=== PATIENT | female | born 1960 | race Caucasian/White ===

== ENCOUNTER 2016-09-17 15:41 | Emergency (ER) | payer MEDICAID ==
[~2016-09-17] VITALS: Ht 170.2 cm; Wt 76.3 kg
[~2016-09-17 15:41] MED LIST: AMLO5TAB2 PO; ASPI325T4 PO; LEVO88TA4 PO; METO25TA35 PO; OMEP40CA6 PO; SIMV80TA3 PO; VENL75TA PO; ZOLP10TA PO
[2016-09-17] MEDS ORDERED: SODIUM CHLORIDE 0.9% 1,000ML IV ONE (16:00)
[2016-09-17] MEDS ORDERED: SODIUM CHLORIDE FLUSH 10ML SYR IVF ONE (16:00)
[2016-09-17 16:48] LABS: HEMOGLOBIN 14.7 g/dL (11.7-16.4)
[2016-09-17 17:04] LABS: PATH.CAST-FLAG NOT PRESENT; SPERM-FLAG NOT PRESENT; SRC-FLAG NOT PRESENT; XTAL-FLAG NOT PRESENT; YLC-FLAG NOT PRESENT
[2016-09-17 17:08] LABS: ASPARTATE AMINO TRANSFERASE 22 U/L (15-37); BLOOD UREA NITROGEN 11 mg/dL (7-18)
[2016-09-17 20:33] VITALS: BP 143/83
== END 2016-09-17 20:36 | disposition home or self-care (01) ==
LOC: ED 17:22
DX: R10.9 Unspecified abdominal pain (principal); M54.5 Low back pain; I10 Essential (primary) hypertension; E78.5 Hyperlipidemia, unspecified
CPT/HCPCS: 36415; 74176; 80053; 81001; 83690; 85025

== ENCOUNTER 2020-01-09 10:48 | Emergency (ER) | payer MEDICAID ==
[~2020-01-09] VITALS: Ht 170.2 cm; Wt 74.0 kg
[~2020-01-09 10:48] MED LIST changes: +AMLO-150 PO; -AMLO5TAB2 PO; +ASPI325T17 PO; -ASPI325T4 PO; +OMEP40CA42 PO; -OMEP40CA6 PO; +SIMV80TA18 PO; -SIMV80TA3 PO
--- NOTE | 2020-01-09 11:07 | NUR ---
preschool assistant principal note : ekg completed in triage, handed to MD Eason. Pt's symptoms and triage VS reviewed with .
[2020-01-09] MEDS ORDERED: SODIUM CHLORIDE 0.9% 1,000 ML IV ONE (11:14)
--- NOTE | 2020-01-09 11:18 | NUR ---
PATIENT COMES IN TODAY WITH C/O OF LOWER BACK PAIN AND DIZZINESS X1 MONTH. PATIENT HAS SOME PAIN IN HER UPPER ABDOMEN. PATIENT WAS RECENTLY SEEN BY HER PCP WHERE IT WAS NOTED HER CREATININE LEVEL WAS HIGH, PATIENT IS SCHEDULED FOR AN ABDOMINAL CT ON SATURDAY 01/13. PATIENT STATES HER PAIN LEVEL NOW IS A 10/13, A&OX4, DENIES NUMBNESS OR TINGLING, NO URINARY SYMPTOMS. NO FURTHER NEEDS AT THIS TIME.
[2020-01-09] MEDS ORDERED: SODIUM CHLORIDE 0.9% 1,000ML IV ONE (11:30)
[2020-01-09] MEDS ORDERED: SODIUM CHLORIDE FLUSH 10ML SYR IVF ONE (11:30)
[2020-01-09 11:52] LABS: BASOPHILS # (AUTO) 0.04 x10^3/uL (0-0.1); BASOPHILS % (AUTO) 1 % (0-1); EOSINOPHILS % (AUTO) 2 % (1-7); LYMPHOCYTES # (AUTO) 1.47 x10^3/uL (1-3.4); LYMPHOCYTES % (AUTO) 24 % (22-44); MD NO; MEAN CORPUSCULAR HEMOGLOBIN 31.6 pg (27.0-34.8); MEAN CORPUSCULAR HGB CONC 33.5 g/dL (32.4-35.8); MEAN CORPUSCULAR VOLUME 94.4 fL (80-100); MEAN PLATELET VOLUME 9.2 fL (7.4-10.4); MONOCYTES # (AUTO) 0.54 x10^3/uL (0.2-0.8); MONOCYTES % (AUTO) 9 % (2-9); NEUTROPHILS # (AUTO) 4.11 x10^3/uL (1.8-6.8); NEUTROPHILS % (AUTO) 66 % (42-75); PLATELET COUNT 233 x10^3/uL (130-400); RED BLOOD COUNT 4.75 x10^6/uL (3.82-5.3); RED CELL DISTRIBUTION WIDTH 13.2 % (9.6-15.2)
--- NOTE | 2020-01-09 12:01 | NUR ---
PATIENT AMBULATED TO BATHROOM FOR URINE SAMPLE.
[2020-01-09 12:12] LABS: ALBUMIN 4.3 g/dL (3.4-5.0); CALCIUM 9.7 mg/dL (8.5-10.1); CHLORIDE 113 mmol/L (98-107)
[2020-01-09 12:15] LABS: ALANINE AMINOTRANSFERASE 23 U/L (12-78); ALKALINE PHOSPHATASE 67 U/L (45-117); ANION GAP 6 mmol/L (5-15); BILIRUBIN,TOTAL 0.3 mg/dL (0.2-1.0); CREATININE 0.96 mg/dL (0.55-1.02); TOTAL PROTEIN 7.8 g/dL (6.4-8.2)
--- NOTE | 2020-01-09 12:20 | NUR ---
BREAK RN: PT BACK TO ROOM FROM RESTROOM. MONITORS REAPPLIED. PT REPOSITIONED ON GURCASHION FOR COMFORT. BILAT FEMORAL PULSES FELT AND DOPPLER US UTILIZED. ERP DR. JERONIMO NOTIFIED FEMORAL PULSES PRESENT. UA COLLECTED, LABELED, AND SENT TO LAB. NADN. HARVEY.
[2020-01-09 12:29] LABS: MICROSCOPIC INDICATED
--- NOTE | 2020-01-09 13:26 | NUR ---
PT TO CT AT THIS TIME.
[2020-01-09] MEDS ORDERED: OMNIPAQUE 350 MG/ML, 100ML BOTTLE ONE (13:30)
--- NOTE | 2020-01-09 14:15 | NUR ---
PATIENT BACK FROM CT. VITAL SIGNS WITHIN NORMAL LIMITS. NO C/O PAIN, NO FURTHER NEEDS AT THIS TIME.
[2020-01-09 15:24] VITALS: BP 157/79
--- NOTE | 2020-01-09 15:38 | NUR ---
Patient given discharge instructions and they have confirmed that they understand the instructions. Patient ambulatory with steady gait.
== END 2020-01-09 15:39 | disposition home or self-care (01) ==
LOC: ED 15:30
DX: R42 Dizziness and giddiness (principal); M54.5 Low back pain; R53.1 Weakness; I10 Essential (primary) hypertension
CPT/HCPCS: 36415; 74175; 80053; 81001; 83690; 85025; 87086; 93005; 96360; 96361; 99285; J7030; Q9967

== ENCOUNTER → 2020-02-01 | Outpatient (CLI) | payer MEDICAID ==
[~2020-02-01] MED LIST changes: +OMNIPAQUE 350 MG/ML, 100ML BOTTLE ONE
== END | disposition home or self-care (01) ==
LOC: RAD 13:19
PROVIDERS: ATTEND Nurse Practitioner
DX: I71.4 Abdominal aortic aneurysm, without rupture (principal); I74.09 Other arterial embolism and thrombosis of abdominal aorta; Z86.79 Personal history of other diseases of the circulatory system
CPT/HCPCS: 74177; Q9967

== ENCOUNTER 2020-04-21 07:34 | Day surgery (SDC) | payer MEDICAID, OTHER ==
[2020-04-18 10:08] LABS: BASOPHILS % (AUTO) 1 % (0-1); EOSINOPHILS % (AUTO) 3 % (1-7); LYMPHOCYTES % (AUTO) 19 % (22-44); MEAN CORPUSCULAR HEMOGLOBIN 30.6 pg (27.0-34.8); MEAN CORPUSCULAR HGB CONC 32.9 g/dL (32.4-35.8); MEAN PLATELET VOLUME 8.6 fL (7.4-10.4); MONOCYTES % (AUTO) 9 % (2-9); NEUTROPHILS % (AUTO) 69 % (42-75); PLATELET COUNT 270 x10^3/uL (130-400); RED BLOOD COUNT 4.65 x10^6/uL (3.82-5.3)
[2020-04-18 10:10] LABS: MD NO
[2020-04-18 10:19] LABS: INTERNATIONAL NORMALIZED RATIO 0.94 (0.93-1.1)
[2020-04-18 10:25] LABS: ALBUMIN 4.1 g/dL (3.4-5.0); ANION GAP 7 mmol/L (5-15); CALCIUM 9.5 mg/dL (8.5-10.1); CHLORIDE 110 mmol/L (98-107); CREATININE 0.91 mg/dL (0.55-1.02)
[2020-04-18 10:32] LABS: ALANINE AMINOTRANSFERASE 31 U/L (12-78); ALKALINE PHOSPHATASE 70 U/L (45-117); BILIRUBIN,TOTAL 0.3 mg/dL (0.2-1.0); TOTAL PROTEIN 7.8 g/dL (6.4-8.2)
[~2020-04-21] VITALS: Ht 170.2 cm; Wt 75.2 kg
[~2020-04-21 07:34] MED LIST changes: +ASPI81TA45 PO; +LEVO88TA61 PO; +LOSA50TA14 PO; +OMEP-110 PO; -OMNIPAQUE 350 MG/ML, 100ML BOTTLE ONE
[2020-04-21 08:25] VITALS: BP 124/75
[2020-04-21] MEDS ORDERED: CHLORHEXIDINE 15 ML UDC ONE (08:29)
[2020-04-21] MEDS ORDERED: LACTATED RINGERS 1,000 ML IV SCH (08:30)
[2020-04-21] MEDS ORDERED: CHLORHEXIDINE 15 ML UDC MM ONE (08:30)
[2020-04-21] MEDS ORDERED: FENTANYL PF 250 MCG/5ML ONE ×2 (08:36→10:59)
[2020-04-21] MEDS ORDERED: MIDAZOLAM 1 MG/ML, 2ML ONE (08:36)
[2020-04-21] MEDS ORDERED: PROPOFOL 10 MG/ML, 20ML ONE (08:37)
[2020-04-21] MEDS ORDERED: ONDANSETRON 2MG/ML, 2ML ONE (08:37)
[2020-04-21] MEDS ORDERED: GLYCOPYRROLATE 0.2MG/1ML, 5ML ONE (08:37)
[2020-04-21] MEDS ORDERED: ROCURONIUM 10MG/ML,5ML ONE (08:37)
[2020-04-21] MEDS ORDERED: NEOSTIGMINE 1 MG/ML, 10ML ONE (08:37)
[2020-04-21] MEDS ORDERED: CEFAZOLIN 1,000 MG ONE (08:37)
[2020-04-21] MEDS ORDERED: DEXAMETHASONE 4 MG/ML, 1ML ONE (08:37)
[2020-04-21] MEDS ORDERED: CEFOTETAN PMX 2GM/50ML 50 ML IVPB ONE (09:00)
[2020-04-21] MEDS ORDERED: EPINEPHRINE 1 MG/ML, 1ML ONE (09:25)
[2020-04-21] MEDS ORDERED: BUPIVACAINE/PF 0.25% ONE (09:25)
[2020-04-21] MEDS ORDERED: INDOCYANINE GREEN 25 MG VIAL ONE (09:25)
[2020-04-21] MEDS ORDERED: HEPARIN 1,000 UNITS/ML, 10ML ONE (09:25)
[2020-04-21] MEDS ORDERED: CEFOTETAN IVPB ONE (09:30)
[2020-04-21] MEDS ORDERED: FLU VACC QS2020-21(6MOS UP)/PF 60MCG/0.5 ML SYR IM ONE (09:30)
[2020-04-21] MEDS ORDERED: DEXTROSE 5% IVPB ONE (09:30)
[2020-04-21] MEDS ORDERED: LABETALOL 5MG/ML, 20ML IV PRN (10:00)
[2020-04-21] MEDS ORDERED: ACETAMINOPHEN 325 MG TABLET PO PRN (10:00)
[2020-04-21] MEDS ORDERED: PROMETHAZINE 25 MG/ML, 1ML IVPush PRN (10:00)
[2020-04-21] MEDS ORDERED: hydrALAzine 20 MG/ML, 1ML IV PRN (10:00)
[2020-04-21] MEDS ORDERED: morphine SULFATE 10 MG/ML, 1ML IVPush PRN (10:00)
[2020-04-21] MEDS ORDERED: HALOPERIDOL 5 MG/ML IV PRN (10:00)
[2020-04-21] MEDS ORDERED: MEPERIDINE/PF 25MG/0.5ML IVPush PRN (10:00)
[2020-04-21] MEDS ORDERED: BUPIVACAINE/PF-EPI 0.25% 1:200K INFIL ONE (10:17)
[2020-04-21] MEDS ORDERED: FENTANYL PF 100 MCG/2ML ONE ×2 (12:02→12:40)
[2020-04-21] MEDS ORDERED: OXYcodone 5 MG/5 ML ORAL.SOL UDC ONE (12:03)
[2020-04-21] MEDS: FENTANYL PF 100 MCG/2ML IV PRN ×3 (12:05→12:47)
[2020-04-21] MEDS ORDERED: ACETAMINOPHEN 650 MG/20.3 ML UDC ONE (12:10)
[2020-04-21] MEDS: OXYcodone 5 MG/5 ML ORAL.SOL UDC PO PRN ×2 (12:15→16:24)
[2020-04-21] MEDS ORDERED: HYDROmorphone 1 MG/ML, 1ML INJ ONE (12:22)
[2020-04-21] MEDS: HYDROmorphone 1 MG/ML, 1ML INJ IVPush PRN ×2 (12:23→12:31)
== END 2020-04-21 16:35 | disposition home or self-care (01) ==
LOC: OUT 07:34
PROVIDERS: ATTEND Obstetrics & Gynecology
DX: R10.2 Pelvic and perineal pain (principal); N84.0 Polyp of corpus uteri; D25.1 Intramural leiomyoma of uterus; N94.89 Other specified conditions associated with female genital organs and menstrual cycle; N73.6 Female pelvic peritoneal adhesions (postinfective); I10 Essential (primary) hypertension; E03.9 Hypothyroidism, unspecified; E78.5 Hyperlipidemia, unspecified; K21.9 Gastro-esophageal reflux disease without esophagitis; Z78.0 Asymptomatic menopausal state; Z79.1 Long term (current) use of non-steroidal anti-inflammatories (NSAID); Z79.82 Long term (current) use of aspirin; Z79.890 Hormone replacement therapy; Z79.899 Other long term (current) drug therapy; Z87.891 Personal history of nicotine dependence; Z88.0 Allergy status to penicillin; Z90.5 Acquired absence of kidney; Z98.890 Other specified postprocedural states; Z80.8 Family history of malignant neoplasm of other organs or systems
CPT/HCPCS: 36415; 58552; 80053; 85025; 85610; 85730; 86304; 86850; 86900; 86923; 87635; 88307; 88329; J0171; J0690; J1100; J1170; J2250; J2405; J2704; J2710; J3010; J7120; S2900; J1644

== ENCOUNTER → 2020-08-27 | Outpatient (CLI) | payer MEDICAID | END | disposition home or self-care (01) | LOC: EDSTATUS 13:00 → RAD 13:22 | PROVIDERS: ATTEND Nurse Practitioner | DX: G31.89 Other specified degenerative diseases of nervous system (principal); R51.9 Headache, unspecified | CPT/HCPCS: 70544; 70551 ==

== ENCOUNTER 2020-09-15 10:03 | Outpatient (CLI) | payer MEDICAID | END 2020-09-15 23:59 | disposition home or self-care (01) | LOC: CFH 10:03 | PROVIDERS: ATTEND Nurse Practitioner | DX: Z12.31 Encounter for screening mammogram for malignant neoplasm of breast (principal) | CPT/HCPCS: 77063; 77067 ==